=== PATIENT | female | born 1980 ===

== ENCOUNTER 2018-12-17 05:32 | Inpatient (IN) ==
[2018-12-17] MEDS ORDERED: BUTORPHANOL 2 MG/ML VIAL IV PRN (06:25)
[2018-12-17] MEDS ORDERED: ONDANSETRON 4 MG/2 ML VIAL IV PRN (06:25)
[2018-12-17] MEDS ORDERED: LACTATED RINGERS 250 ML IV ONE (06:25)
[2018-12-17] MEDS ORDERED: LACTATED RINGERS 1,000 ML IV SCH (06:30)
[2018-12-17] MEDS ORDERED: OXYTOCIN/LR 20 UNIT/1,000 ML BAG IV SCH (06:30)
[2018-12-17 06:49] LABS: Basophils % 0.4 % (0.0-0.8); Eosinophils # 0.1 10*3/uL (0.0-0.87); Eosinophils % 1.1 % (0.00-10.9); Hematocrit 34.8 VOL% (35.7-47.0); Hemoglobin 10.9 GM/DL (12.0-16.0); Immature Granulocytes % 0.6 %; Immature Granulocytes Absolute 0.05 #; Lymphocytes # 2.2 10*3/uL (1.4-4.0); Mean Corpuscular HGB Conc 31.3 GM/DL (32-36); Mean Corpuscular Hemoglobin 28 PG (27-34); Mean Corpuscular Volume 87.9 FL (87-102); Mean Platelet Volume 10.6 FL (9.6-12.0); Monocytes # 0.6 10*3/uL (0.11-0.8); Monocytes % 7.5 % (1.7-12.7); Neutrophils # 5.5 10*3/uL (1.4-7.4); Neutrophils % 64.4 % (38.7-73.9); Platelet Count 238 T/CUMM (130-400); Red Blood Count 3.96 MC/CUMM (3.8-5.5); Red Cell Distribution Width 13.9 % (9.3-17.3); White Blood Count 8.5 T/CUMM (4-12)
[2018-12-17 07:30] LABS: Albumin 2.6 G/DL (3.4-5.0); Bilirubin,Total 0.4 MG/DL (0.2-1.0); Calcium 8.6 MG/DL (8.5-10.1); Osmolality,Calculated 271.7 MOS/KG (273-304); Potassium 3.6 MMOL/L (3.5-5.1); Total Protein 7.2 G/DL (6.4-8.3)
[2018-12-17] MEDS: MEPERIDINE 50 MG/1 ML VIAL IV PRN ×2 (08:56→11:20)
[2018-12-17] MEDS ORDERED: METHYLERGONOVINE 0.2 MG/1 ML AMP ONE (09:06)
[2018-12-17] MEDS ORDERED: miSOPROStol 200 MCG TABLET ONE (09:06)
[2018-12-17] MEDS ORDERED: LIDOCAINE 1% 50 ML VIAL ONE (09:06)
[2018-12-17] MEDS ORDERED: CARBOPROST TROMETHAMINE 250 MCG/ML AMP IM ONE (09:06)
[2018-12-17 11:49] LABS: Cord Arterial Blood HCO3 15.4 MMOL/L
[2018-12-17 11:50] LABS: Cord Venous Blood PCO2 38.4 MMHG; Cord Venous Blood PO2 37.9 MMHG
[2018-12-17] MEDS ORDERED: OXYTOCIN/LR 20 UNIT/1,000 ML BAG IV ONE (14:45)
[2018-12-17] MEDS ORDERED: LANOLIN 50% CREAM 0.3 OZ TUBE TOP PRN (15:07)
[2018-12-17] MEDS ORDERED: BISACODYL 10 MG SUPP RECTAL PRN (15:07)
[2018-12-17] MEDS ORDERED: HYDROCORTISONE 2.5% RECTAL CREAM 30 GM TUBE TOP PRN (15:07)
[2018-12-17] MEDS ORDERED: MEASLES/MUMPS/RUBELLA VACCINE 0.5 ML VIAL SUBCUT ONE (15:07)
[2018-12-17] MEDS ORDERED: WITCH HAZEL PADS 100/JAR TOP PRN (15:07)
[2018-12-17] MEDS ORDERED: BENZOCAINE 20%/MENTHOL 0.5% SPRAY 56 GM CAN TOP PRN (15:07)
[2018-12-17] MEDS ORDERED: ACETAMINOPHEN 325 MG TABLET PO PRN (15:07)
[2018-12-17] MEDS ORDERED: DIPH/TET/ACEL PERT BOOSTER VACCINE 0.5 ML VIAL IM ONE (15:07)
[2018-12-17] MEDS ORDERED: RHO(D) IMMUNE GLOBULIN 300 MCG SYRINGE IM ONE (15:07)
[2018-12-17] MEDS ORDERED: oxyCODONE/ACETAMINOPHEN 5-325 MG TABLET PO PRN ×2 (15:07)
[2018-12-17] MEDS: IBUPROFEN 800 MG TABLET PO PRN (17:42)
[2018-12-17] MEDS: ACETAMINOPHEN/CODEINE 300-30 MG TABLET PO PRN (17:42)
[2018-12-17] MEDS: DOCUSATE SODIUM 100 MG CAPSULE PO SCH (20:44)
[2018-12-18] MEDS: ACETAMINOPHEN/CODEINE 300-30 MG TABLET PO PRN (02:13)
[2018-12-18] MEDS: IBUPROFEN 800 MG TABLET PO PRN (02:13)
[2018-12-18 06:10] LABS: Basophils % 0.3 % (0.0-0.8); Eosinophils # 0.1 10*3/uL (0.0-0.87); Eosinophils % 1.1 % (0.00-10.9); Hematocrit 28.6 VOL% (35.7-47.0); Immature Granulocytes % 0.4 %; Immature Granulocytes Absolute 0.05 #; Lymphocytes # 2.4 10*3/uL (1.4-4.0); Lymphocytes % 20.6 % (21.3-54.2); Mean Corpuscular HGB Conc 31.5 GM/DL (32-36); Mean Corpuscular Hemoglobin 27 PG (27-34); Mean Corpuscular Volume 85.4 FL (87-102); Mean Platelet Volume 10.9 FL (9.6-12.0); Monocytes # 0.9 10*3/uL (0.11-0.8); Neutrophils % 69.6 % (38.7-73.9); Platelet Count 193 T/CUMM (130-400); Red Blood Count 3.35 MC/CUMM (3.8-5.5); Red Cell Distribution Width 13.8 % (9.3-17.3); White Blood Count 11.4 T/CUMM (4-12)
[2018-12-18] MEDS: DOCUSATE SODIUM 100 MG CAPSULE PO SCH ×2 (09:03→21:04)
[2018-12-18] MEDS: FERROUS SULFATE 325 MG TABLET PO SCH ×2 (09:03→21:04)
[2018-12-19] MEDS: FERROUS SULFATE 325 MG TABLET PO SCH (09:08)
[2018-12-19] MEDS: DOCUSATE SODIUM 100 MG CAPSULE PO SCH (09:08)
[2018-12-19 11:40] VITALS: BP 97/58
== END 2018-12-19 12:50 | disposition home or self-care (01) | DRG 560 ==
LOC: N.LDOUT 05:32 → N.LD 05:36 → N.OB 15:01
PROVIDERS: ADMIT Obstetrics & Gynecology; ATTEND Obstetrics & Gynecology